=== PATIENT | female | born 1970 | race Native Hawaiian/Other Pacific Islander ===

== ENCOUNTER 2016-12-22 23:37 | Emergency (ER) | payer OTHER ==
[~2016-12-22] VITALS: Ht 160 cm; Wt 113.4 kg
[~2016-12-22 23:37] MED LIST: FIORICET 50-3001 CAP PO; HYDR5TAB9 PO; TOPAMAX25 MG PO; TOPAMAX50 MG OR
[2016-12-22 23:47] VITALS: BP 140/70; TEMP 98.6
[2016-12-23 00:02] LABS: PLATELET COUNT 148 K/uL (152-353)
[2016-12-23 00:11] LABS: POTASSIUM 4.2 mmol/L (3.6-5.2); SODIUM 138 mmol/L (136-145)
[2016-12-23] MEDS ORDERED: ESCI10TA PO (00:33)
== END 2016-12-23 01:00 | disposition home or self-care (01) ==
LOC: ED 23:37
PROC: 0T9B70Z Drainage of Bladder with Drainage Device, Via Natural or Artificial Opening (ICD-10-PCS; principal; 2016-12-22)
DX: G40.802 Other epilepsy, not intractable, without status epilepticus (principal)
CPT/HCPCS: 36415; 80053; 80185; 80307; 80320; 81000; 85027; 93005; 99283; G0479

== ENCOUNTER 2017-02-02 21:28 | Outpatient (CLI) | payer OTHER ==
[~2017-02-02 21:28] MED LIST changes: +ESCI10TA PO
== END 2017-02-02 21:31 | disposition short-term general hospital (02) ==
LOC: AMB 21:28
DX: R56.9 Unspecified convulsions (principal)
CPT/HCPCS: A0425; A0429

== ENCOUNTER 2017-02-02 21:32 | Emergency (ER) | payer OTHER ==
[~2017-02-02] VITALS: Ht 154.9 cm; Wt 122.5 kg
[2017-02-02 22:11] LABS: PLATELET COUNT 154 K/uL (152-353)
[2017-02-02 22:16] LABS: POTASSIUM 3.8 mmol/L (3.6-5.2); SODIUM 137 mmol/L (136-145)
[2017-02-02 22:50] VITALS: BP 150/89; TEMP 99.2
== END 2017-02-02 22:51 | disposition home or self-care (01) ==
LOC: ED 21:32
PROVIDERS: Family Medicine
DX: R56.9 Unspecified convulsions (principal)
CPT/HCPCS: 36415; 80053; 80164; 80307; 81000; 85027; 99283; G0479

== ENCOUNTER 2017-02-12 09:45 | Outpatient (CLI) | payer OTHER ==
[2017-02-12 10:24] LABS: PLATELET COUNT 177 K/uL (152-353)
[2017-02-12 11:33] LABS: POTASSIUM 4.6 mmol/L (3.6-5.2); SODIUM 134 mmol/L (136-145)
== END 2017-02-12 19:48 | disposition home or self-care (01) ==
LOC: LABW 09:45
PROVIDERS: Family Medicine
DX: F41.8 Other specified anxiety disorders (principal); J44.9 Chronic obstructive pulmonary disease, unspecified; R32 Unspecified urinary incontinence; R56.9 Unspecified convulsions; E78.00 Pure hypercholesterolemia, unspecified
CPT/HCPCS: 36415; 80053; 80061; 80164; 81000; 84439; 84443; 85027